=== PATIENT | male | born 1945 | race Caucasian/White ===

== ENCOUNTER → 2021-06-05 | Outpatient (CLI) | payer MEDICARE, OTHER ==
[~2021-06-05] VITALS: Ht 175.3 cm; Wt 60.0 kg
[~2021-06-05] MED LIST: ADULT LOW DOSE81 MG PO; CLOBETASOL EMU100 GM TOP; COSENTYX P150 MG/11 SUBQ; COZAAR 50 MG TA50 M1 PO; FERROUS GLUCON324 M2 PO; LIPITOR40 MG PO; LYRICA 75 MG CA75 MG PO; PERCOCET 7.5-31 EAC1 PO; THERAGRAN-M PR1 EAC1 PO
[2021-06-05 08:24] LABS: HEMATOCRIT 35.1 % (42.0-52.0); HEMOGLOBIN 11.8 gm/dL (14.0-18.0); MCH 31.7 pg (26.0-34.0); MCHC 33.6 g/dL (28.0-37.0); MCV 94.6 fL (80.0-100.0); MPV 9.3 fl. (7.2-11.1); RBC 3.71 mil/uL (4.50-6.00); RDW-CV 14.4 % (10.5-14.5); WBC 4.2 thou/uL (4.0-11.0)
[2021-06-05 08:31] LABS: CALCIUM 8.9 mg/dL (8.5-10.1); CREATININE 1.2 mg/dL (0.6-1.3)
[2021-06-05 08:33] VITALS: BP 115/67
[2021-06-05 08:36] LABS: ALBUMIN 3.7 g/dL (3.4-5.0); TOTAL BILIRUBIN 0.3 mg/dL (<0.1-1.0); TOTAL PROTEIN 7.6 g/dL (6.4-8.2)
[2021-06-05 11:10] VITALS: BP 128/53
[2021-06-05 11:25] VITALS: BP 120/48
--- NOTE | 2021-06-05 16:03 | H ---
[place] [address] HISTORY AND PHYSICAL Name: MELANIE DONALD Room: [facility]#: [id number] Admission: 06/05/21 Attend Phys: Jarrett Bentley MD, F Discharge: Date of : 45 Report #: [id number] THIS REPORT FOR: cc: Tucker Mariscal MD, Austin T. MD Blick, David R. MD [facility] ~ cc: Tucker Mariscal MD DATE OF SERVICE: 06/05/2021 HISTORY OF PRESENT ILLNESS: The patient is a 75-year-old single white male who was brought to the outpatient department to undergo pacemaker generator change. The patient initially presented in 2012 to [facility] with dizzy spells. He was found to have high-degree AV block. Heart catheterization showed no significant coronary artery disease. Dr. Cisneros implanted a permanent dual chamber [employer] pacemaker. He has done well since that time. Recently, his pacemaker battery was noted to be at GILLES. He was brought to the outpatient department at [place] today for generator change. He denies recent chest pain, shortness of breath, palpitations, syncope. He stays very active. PAST MEDICAL HISTORY: He has had appendectomy, back surgery, hernia repair, bladder cancer. He recently had esophageal dilatation performed. CURRENT MEDICATIONS: Include atorvastatin, oxycodone for chronic back pain. He previously took losartan for blood pressure, he is no longer taking losartan. ALLERGIES: HE HAS A PREVIOUS INTOLERANCE TO CLINDAMYCIN AND BETADINE SKIN SCRUB. FAMILY HISTORY: Positive for heart disease. SOCIAL HISTORY: He is single, lives with his mom in [place], [place]. He is a retired machinist/machine builder. He quit smoking in 1984. He also has a history of alcohol abuse, went through AA. He also quit drinking in 1984. REVIEW OF SYSTEMS: No history of stroke, asthma, liver disease, kidney disease. He has chronic kidney disease. No psychiatric history. No chronic skin condition. PHYSICAL EXAMINATION: GENERAL: Revealed an elderly male, appeared in no distress. VITAL SIGNS: Blood pressure 130/80, pulse 70, he is afebrile. HEENT: He is anicteric. Conjunctivae pink. Mucosa is moist. NECK: Veins nondistended. No carotid bruits. Neck is supple. CHEST: [place] [address] HISTORY AND PHYSICAL Name: MELANIE DONALD Room: [facility]#: [id number] Admission: 06/05/21 Attend Phys: Jarrett Bentley MD, F Discharge: Date of : 45 Report #: [id number] HEART: Regular rate and rhythm. ABDOMEN: Soft. EXTREMITIES: Had no edema. Posterior tibial pulse 2+ bilaterally. SKIN: Cool and dry. NEUROLOGIC: Nonfocal. LABORATORY DATA: His ECG shows P-wave sensing, ventricular capture. IMPRESSION AND RECOMMENDATIONS: 1. Pacemaker generator GILLES. Recommend generator change. I would recommend placement of a temporary pacemaker while changing the generator since the patient is pacer dependent, and has no underlying rhythm. 2. History of complete heart block. Recommend replacement of pacemaker generator. 3. Hypertension. The patient no longer takes losartan. 4. Hyperlipidemia. The patient is no longer on a statin drug. 5. Previous esophageal dilatation. 6. History of mild carotid stenosis. 7. Sleep apnea. The patient no longer uses CPAP. 8. Previous tobacco abuse. 9. History of alcohol abuse. <ELECTRONICALLY SIGNED> By: Jarrett Bentley MD, FACC 06/05/21 1603 [id number] Bentley MD, FACC /nt
--- NOTE | 2021-06-05 16:42 | CARD ---
[address] [address] CARDIAC CATH REPORT Name: MELANIE DONALD Room: [facility]#: [id number] Admission: 06/05/21 Attend Phys: Jarrett Bentley MD, F Discharge: Date of : 45 Report #: [id number] THIS REPORT FOR: cc: Tucker Mariscal MD, Austin T. MD Blick, David R. MD [facility] ~ APPROVED REPORT Study performed: 06/05/2021 08:59:36 Patient Status: Out-Patient Room #: Event Personnel: Jelena Espinoza RN, Leonila Dhillon RTR, Nancy Cash RTR, Maite Romero RTR Exam: Generator Change for a Dual Chamber Permanent Pacemaker Indications: GILLES The patient is a 75 year-old male with a history of Symptomatic Bradycardia. Conscious Sedation Start time: 0946 End Time: 1044 Fentanyl 25.0 mcg Versed 2.0 mg Implanted Devices: Medania Das S DR JOHN Carmichael [id number] SN [id number] EXP 09/21/2021 Explanted Devices: Advantio K063 [employer] SN [id number] EXP 01/17/2013 Procedure The patient underwent informed consent. We discussed the details of the procedure including the risks, which include, but not limited to bleeding, infection, vascular damage, cardiac perforation, and pneumothorax. He understood these risks and was willing to proceed. As such, he was brought to the EP/Cardiac Catheterization laboratory in a fasting and sedated state and prepped and draped in a The patient underwent conscious sedation, with no related complications. The patient was brought to the EP/Cardiac Catheterization laboratory and the left chest and shoulder were prepped and draped in a sterile manner. During this case, Fluoroscopy and no [place] [address] CARDIAC CATH REPORT Name: KAUSHIKCHELSEAMELANIE BAPTISTE Room: [facility]#: [id number] Admission: 06/05/21 Attend Phys: Jarrett Bentley MD, F Discharge: Date of : 45 Report #: [id number] IV conscious sedation was used throughout procedure with appropriate monitoring and was performed in the presence of a registered nurse who was an independent trained observer other than the physician performing the procedure. The left subclavian region was infiltrated with 2% Lidocaine with Epinephrine subcutaneous anesthesia. A transverse incision was made in the left upper chest cavity. Capturing and sensing thresholds were verified. Electrode Parameters P Wave: 4.1 mv R Wave: 16 mv Atrial Threshold: 0.4 V @ 0.4 ms Ventricular Threshold: 0.5 V @ 0.4 ms Atrial Resistance: 530 ohm Ventricular Resistance: 586 ohm Generator Change The generator change was then secured using sutures. The subcutaneous pocket was irrigated with ancef antibiotic solution.The lead was attached to the appropriate receptacle on the new pulse generator and setscrews firmly tightened to insure adequate contact and stability. The lead and pulse generator were placed into the subcutaneous pocket. Sharp and sponge counts were confirmed to be correct. At this time the pocket was closed subcutaneously with a 0 Vicryl and the skin was closed with a 4.0 Vicryl. The operative site was dressed in sterile fashion with skin affix and the patient was transferred to the floor in stable condition. Complications The patient tolerated the procedure well and there were no complications associated with the procedure. Fluoro time 0.1 min, DAP40.42, mGy 1 Findings Specimens Removed: N/A Estimated Blood Loss: Minimal Conclusion Successful replacement of a dual chamber pacemaker generator. <ELECTRONICALLY SIGNED> By: Jarrett Bentley MD, FACC 06/05/211641 [id number] Bentley MD, FACC /INF
== END | disposition home or self-care (01) ==
LOC: M.CL 07:35
PROVIDERS: ATTEND Internal Medicine Cardiovascular Disease
DX: Z45.010 Encounter for checking and testing of cardiac pacemaker pulse generator [battery] (principal); R00.1 Bradycardia, unspecified; I10 Essential (primary) hypertension; E78.5 Hyperlipidemia, unspecified; Z98.890 Other specified postprocedural states; Z79.899 Other long term (current) drug therapy; Z87.891 Personal history of nicotine dependence; Z88.8 Allergy status to other drugs, medicaments and biological substances; Z91.041 Radiographic dye allergy status